=== PATIENT | female | born 1955 | race Caucasian/White ===

== ENCOUNTER → 2016-05-31 | Outpatient (CLI) | payer MEDICARE, OTHER ==
[~2016-05-31] MED LIST: ATENOLOL100 MG PO; ATIVAN0.5 MG PO; CATAPRES0.1 MG PO; CELEBREX100 MG PO; CELEBREX200 MG PO; CELEXA20 MG PO; CITALOPRAM HBR40 MG PO; COUMADIN4 MG PO; ENDOCET 5-3251 EACH PO; FLEXERIL5 MG PO; HYDROCHLOROTHIA25 MG PO; HYDROCODON-ACE1 EAC8 PO; LEVOTHYROXINE50 MCG PO; MORPHINE SULFAT15 M1 PO; NICOTINE PATCH1 EAC2 TD; OXYCODONE-ACET1 EACH PO; OXYCONTIN10 MG PO; PROZAC20 MG PO; SENNA-TIME S T1 EACH PO; SYNTHROID50 MCG PO
== END | disposition home or self-care (01) ==
LOC: CDC 13:02
DX: Z01.810 Encounter for preprocedural cardiovascular examination (principal); N95.0 Postmenopausal bleeding
CPT/HCPCS: 93000

== ENCOUNTER 2016-06-04 11:01 | Day surgery (SDC) | payer OTHER ==
[~2016-06-04] VITALS: Ht 162.6 cm; Wt 108.9 kg
[2016-06-04 11:39] LABS: POINT-OF-CARE METER ID UU14174212
[2016-06-04 11:53] VITALS: BP 141/69
[2016-06-04 12:43] LABS: METH RESISTANT S AUREUS PCR POSITIVE (NEGATIVE)
[2016-06-04 12:44] LABS: PROBE CHECK PASS
[2016-06-04 14:50] VITALS: BP 158/89
[2016-06-04 15:30] VITALS: BP 157/82
== END 2016-06-04 15:40 | disposition home or self-care (01) ==
LOC: SDC 11:01
PROVIDERS: Obstetrics & Gynecology
DX: N95.0 Postmenopausal bleeding (principal); N84.0 Polyp of corpus uteri; D25.9 Leiomyoma of uterus, unspecified; M51.36 Other intervertebral disc degeneration, lumbar region; F41.1 Generalized anxiety disorder; E78.5 Hyperlipidemia, unspecified; E11.9 Type 2 diabetes mellitus without complications; M51.26 Other intervertebral disc displacement, lumbar region
CPT/HCPCS: 82948; 87641; 88305; J1100; J1885; J2250; J2405; J3010

== ENCOUNTER 2017-01-21 12:28 | Day surgery (SDC) | payer OTHER ==
[~2017-01-21] VITALS: Ht 162.6 cm; Wt 108.9 kg
== END 2017-01-21 14:30 | disposition home or self-care (01) ==
LOC: PAIN 12:28 → SDC 13:00 → PAIN 14:30
DX: M50.123 Cervical disc disorder at C6-C7 level with radiculopathy (principal); M48.02 Spinal stenosis, cervical region; M54.2 Cervicalgia; G89.29 Other chronic pain; M54.5 Low back pain; M79.1 Myalgia; M25.78 Osteophyte, vertebrae; I10 Essential (primary) hypertension; E11.9 Type 2 diabetes mellitus without complications; N84.0 Polyp of corpus uteri; E03.9 Hypothyroidism, unspecified; E66.01 Morbid (severe) obesity due to excess calories; Z68.39 Body mass index [BMI] 39.0-39.9, adult; J43.9 Emphysema, unspecified; F17.290 Nicotine dependence, other tobacco product, uncomplicated; Z88.0 Allergy status to penicillin; Z79.84 Long term (current) use of oral hypoglycemic drugs
CPT/HCPCS: J1100; J2250; J3010